=== PATIENT | male | born 1995 | race Caucasian/White ===

== ENCOUNTER 2017-08-27 11:49 | Emergency (ER) | payer BC | END 2017-08-27 12:08 | disposition home or self-care (01) | LOC: E/R 12:08 | DX: L02.414 Cutaneous abscess of left upper limb (principal) | CPT/HCPCS: 99284; Z7502 ==

== ENCOUNTER 2017-08-30 13:09 | Emergency (ER) | payer BC ==
[2017-08-30] MEDS: LIDOCAINE 2%/EPI MPF (SDV) 20 ML VIAL INJ (15:04)
== END 2017-08-30 15:19 | disposition home or self-care (01) ==
LOC: E/R 13:09 → FTE 15:19
DX: L02.414 Cutaneous abscess of left upper limb (principal); Z48.01 Encounter for change or removal of surgical wound dressing
CPT/HCPCS: 10061; 99282-25

== ENCOUNTER 2017-09-01 08:35 | Emergency (ER) | payer BC | END 2017-09-01 10:39 | disposition home or self-care (01) | LOC: FTE 08:35 | DX: Z48.01 Encounter for change or removal of surgical wound dressing (principal) | CPT/HCPCS: 99281; Z7502 ==